=== PATIENT | male | born 1955 | race Caucasian/White ===

== ENCOUNTER 2017-09-03 06:54 | Inpatient (IN) | payer BC, OTHER ==
[2017-09-03] VITALS (33 sets, daily range): BP systolic 45–141; BP diastolic 21–105
[~2017-09-03] VITALS: Ht 182.9 cm; Wt 110.7 kg
--- OUTSIDE RECORDS SUMMARY | 2017-09-03 07:05 | XMS REPORT ---
Author Author Mundo Echols [facility] Address [address] [place], [place] [id number] Care Team Providers Care Digital Cartographer Name Role Phone Mundo Echols PCP Unavailable Allergies and Adverse Reactions Name Reaction Notes NO KNOWN DRUG ALLERGIES Plan of Treatment Not available. Medications Active Name Start Date Estimated Completion Date SIG Comments calcium carbonate Oral magnesium hydroxide Oral Nexium oral capsule,delayed release(DR/EC) 40 mg take 1 capsule (40 mg) by oral route once daily diclofenac sodium oral tablet,delayed release (DR/EC) 75 mg take 1 tablet (75 mg) by oral route 2 times per day Augmentin 875-125 mg oral tablet 06/01/2015 06/08/2015 take 1 tablet by oral route every 12 hours for 7 days Name Start Date Expiration Date SIG Comments Protonix Oral Tablet, Delayed Release (E.C.) 40 mg 11/18/2010 02/16/2011 take 1 tablet (40 mg) by oral route once daily Triamcinolone Acetonide Topical Cream 0.1 % 11/18/2010 11/28/2010 apply a thin film to the affected skin areas by topical route 2 times per day for 10 days Protonix oral tablet,delayed release (DR/EC) 40 mg 12/15/2013 04/14/2014 take 1 tablet (40 mg) by oral route 2 times per day for 30 days Discontinued Name Start Date Discontinued Date SIG Comments famotidine Oral tablet 10 mg 09/16/2013 Dexilant oral cap, multiphase delay release 60 mg 12/15/2013 take 1 capsule (60 mg) by oral route once daily Protonix oral tablet,delayed release (DR/EC) 40 mg 11/04/2013 12/15/2013 take 1 tablet (40 mg) by oral route once daily for 30 days Problem List Description Status Onset Acid reflux Active Vital Signs Date Time BP-Sys(mm[Hg] BP-Nedra(mm[Hg]) HR(bpm) RR(rpm) Temp WT HT HC BMI BSA BMI Percentile O2 Sat(%) 06/01/2015 6:43:00 PM 107 bpm 20 rpm 101.9 F 239 lbs 95 % 10/12/2014 2:05:00 PM 140 mmHg 86 mmHg 78 bpm 20 rpm 96.1 F 239 lbs 68 in 36.34 kg/m2 2.2806 m 98 % 10/05/2014 1:30:00 PM 152 mmHg 76 mmHg 80 bpm 20 rpm 96 F 239 lbs 68 in 36.3395 kg/m 2.28 m2 99 % 10/20/2013 10:52:00 AM 138 mmHg 74 mmHg 78 bpm 18 rpm 97.2 F 233 lbs 68 in 35.43 kg/m2 2.2518 m 97 % 09/16/2013 3:10:00 PM 132 mmHg 78 mmHg 82 bpm 16 rpm 96 F 233 lbs 68 in 35.4272 kg/m 2.2518 m 97 % 09/03/2013 11:21:00 AM 118 mmHg 68 mmHg 75 bpm 18 rpm 97.5 F 237 lbs 68 in 36.04 kg/m2 2.27 m2 100 % 11/18/2010 1:39:00 PM 125 mmHg 78 mmHg 113 bpm 18 rpm 97.3 F 234.5 lbs 68 in 35.6552 kg/m 2.259 m 96 % Social History Name Description Comments Caffeine Current - status unknown coffee drinker denies alcohol use Tobacco Never smoker History of Procedures Date Ordered Description Order Status 09/03/2013 12:00 AM COMPLETE CBC W/AUTO DIFF WBC Returned 09/03/2013 12:00 AM COMPREHEN METABOLIC PANEL Returned 09/03/2013 12:00 AM LIPID PANEL Returned 09/03/2013 12:00 AM ASSAY OF PSA TOTAL Returned 10/05/2014 12:00 AM EXC H-[id number] B9+JERAMIE 0.6-1 Ordered Results Summary Not available. History Of Immunizations Not available. 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 Gastroesophageal Reflux Nov 18 2010 1:53PM Pain in joint; hand Nov 18 2010 1:53PM Dermatitis Nov 18 2010 1:53PM Gastroesophageal Reflux Sep 03 2013 11:23AM Family history of Hypertension Sep 03 2013 11:23AM Screening For Prostate Cancer Sep 03 2013 11:23AM Dyspepsia Sep 16 2013 3:13PM Colon Cancer Screening Sep 16 2013 3:13PM Benign skin neoplasm Sep 16 2013 3:13PM Seborrheic keratosis Sep 16 2013 3:13PM Acute gastritis Oct 20 2013 10:56AM Follow-up examination after endoscopy Oct 20 2013 10:56AM Diverticulosis of the colon Oct 20 2013 10:56AM Postoperative Follow-up Oct 12 2014 2:06PM Nevus Oct 05 2014 1:31PM Upper respiratory infection Jun 01 2015 6:45PM Payers Insurance Name Company Name Plan Name Plan Number Policy Number Policy Group Number [id number] Thursday, 2010 History of Encounters Visit Date Visit Type Provider 06/01/2015 Office visit Slime ACOSTA 10/12/2014 Office visit Abeeb Gross MD 10/05/2014 Procedures Abebe Gross MD 10/20/2013 Office visit Abebe Gross MD 10/10/2013 [facility] Abebe Gross MD 09/16/2013 Office visit Abebe Gross MD 09/03/2013 Office visit Maria C Thomason APRN 11/18/2010 Office visit Raúl Dee MD
--- OUTSIDE RECORDS SUMMARY | 2017-09-03 07:08 | XMS REPORT | Continuity of Care Document ---
Author Author [facility] Organization [facility] Address Unknown Phone Unavailable Allergies Medications Problems Procedures Results Encounters ACCT No. Visit Date/Time Discharge Status Pt. Type Provider Facility Loc./Unit Complaint [id number] 06/01/2015 19:36:17 06/01/2015 23: 59:59 [facility] Outpatient Slime Ritchie [id number] 10/12/2014 14:59:39 10/12/2014 23: 59:59 [facility] Abebe Gross [id number] 10/05/2014 14:27:06 10/05/2014 23: 59:59 Abebe Cantu [id number] 10/24/2013 11:46:36 10/24/2013 23: 59:59 Abebe Cantu [id number] 10/20/2013 11:44:44 10/20/2013 23: 59:59 Abebe Cantu
--- NOTE | 2017-09-03 07:41 | Diagnostic Imaging Report ---
INDICATION: CODE BLUE, endotracheal tube placement FINDINGS: Portable view of the chest demonstrates endotracheal tube in good position. Heart size is normal. No effusion or pneumothorax seen. No fractures are identified. Bilateral pulmonary infiltrates are present, right greater than left. This could be due to edema. IMPRESSION: 1. Endotracheal tube is in good position 2. Bilateral pulmonary infiltrates are present greatest centrally but more so on the right than the left. This could be due to to pulmonary edema. Dictated by: Dictated on workstation # [id number]
[2017-09-03] MEDS ORDERED: NOREPINEPHRINE 4 MG/4 ML (LEVOPHED) AMP IV ONE (07:46)
[2017-09-03] MEDS ORDERED: D5W IV SOLUTION (EXCEL) 250 ML IV ONE ×3 (07:46→22:42)
--- NOTE | 2017-09-03 07:47 | ED CPR ---
HPI-CPR General Stated Complaint: CODE Source of Information: EMS, Family Exam Limitations: Physical Impairments History of Present Illness Time Seen by Provider: 06:55 Initial Comments Patient presents to ER by EMS in CPR. According to family says yesterday and when he went to bed he is having no problems, or concerns. He has a history of snoring and she woke up about 10 minutes prior to 6 this morning and he seemed to be doing fine. She woke up again at 6:00 and he was making a loud snoring sound and would not respond to her or wake up for her. She tried waking him for several minutes without any success before calling EMS. EMS reports they started CPR approximately 0620 and one shock was advised and then was asystole. CPR was continued upon arrival and the patient was unable to give any meaningful history secondary to being ventilated by [id number]. Family reports the patient does not see a primary care physician and has no known medical history. He does not take any medications. Family reports the patient was treated with doxycycline about 3-4 weeks ago for left lower leg cellulitis. Allergies and Home Medications Allergies Coded Allergies: No Known Drug Allergies (Unverified , 09/03/17) Review of Systems Constitutional: see HPI (review of systems unable to be obtained as patient is in cardiac arrest. Family reports mon negative review of systems.) Past [id number]-Wwiuvb-Ukzzzd Hx Patient Social History Alcohol Use: Denies Use Recreational Drug Use: No Smoking Status: Never a Smoker Physical Exam Vital Signs Vital Sign - Last 12Hours 09/03/17 09/03/17 06:54 07:55 Pulse 81 Resp 0 Pulse Ox 69 O2 Delivery Ambu Bag O2 Flow Rate 15.00 FiO2 100 Capillary Refill : General Appearance: Severe Distress, Other (cardiac arrest) HEENT: Other (pupils fixed 4 mm and no corneal reflex.) Neck: Normal Inspection, Supple Respiratory: Rales, Rhonci, Other Cardiovascular: No Edema, No JVD Gastrointestinal: Abnormal Bowel Sounds (hypoactive), Distended Extremity: Normal Inspection, Slow Capillary Refill Neurologic/Psychiatric: Other ([place] Coma Scale 3) Skin: Warm/Dry, Pallor Focused Exam Evaluation Lactate Level Laboratory Tests 09/03/17 07:42: Lactic Acid Level 12.06*H Lactic Acid Level Laboratory Tests Test 09/03/17 07:42 Lactic Acid Level 12.06 MMOL/L (0.50-2.00) *H Progress/Results/Core Measures Results/Orders Lab Results Laboratory Tests Test 09/03/17 07:42 09/03/17 08:28 09/03/17 08:29 Range/Units White Blood Count 7.1 4.3-11.0 10^3/uL Red Blood Count 4.19 L 4.35-5.85 10^6/uL Hemoglobin 12.6 L 13.3-17.7 G/DL Hematocrit 39 L 40-54 % Mean Corpuscular Volume 92 80-99 FL Mean Corpuscular Hemoglobin 30 25-34 PG Mean Corpuscular Hemoglobin Concent 33 32-36 G/DL Red Cell Distribution Width 13.8 10.0-14.5 % Platelet Count 118 L 130-400 10^3/uL Mean Platelet Volume 11.1 H 7.4-10.4 FL Neutrophils (%) (Auto) 24 L 42-75 % Lymphocytes (%) (Auto) 67 H 12-44 % Monocytes (%) (Auto) 7 0-12 % Eosinophils (%) (Auto) 1 0-10 % Basophils (%) (Auto) 1 0-10 % Neutrophils # (Auto) 1.7 L 1.8-7.8 X 10^3 Lymphocytes # (Auto) 4.7 H 1.0-4.0 X 10^3 Monocytes # (Auto) 0.5 0.0-1.0 X 10^3 Eosinophils # (Auto) 0.1 0.0-0.3 10^3/uL Basophils # (Auto) 0.1 0.0-0.1 10^3/uL Neutrophils % (Manual) 9 % Lymphocytes % (Manual) 43 % Monocytes % (Manual) 7 % Eosinophils % (Manual) 1 % Metamyelocytes % 2 % Band Neutrophils 7 % Nucleated Red Blood Cells 1 Reactive Lymphocytes 31 % Smudge Cells 8 PER 100 WBC Blood Morphology Comment NORMAL Sodium Level 143 135-145 MMOL/L Potassium Level 3.6 3.6-5.0 MMOL/L Chloride Level 109 H 98-107 MMOL/L Carbon Dioxide Level 12 L 21-32 MMOL/L Anion Gap 22 H 5-14 MMOL/L Blood Urea Nitrogen 15 7-18 MG/DL Creatinine 1.60 H 0.60-1.30 MG/DL Estimat Glomerular Filtration Rate 44 BUN/Creatinine Ratio 9 Glucose Level 372 H 70-105 MG/DL Lactic Acid Level 12.06 *H 0.50-2.00 MMOL/L Calcium Level 7.7 L 8.5-10.1 MG/DL Total Bilirubin 0.3 0.1-1.0 MG/DL Aspartate Amino Transf (AST/SGOT) 375 H 5-34 U/L Alanine Aminotransferase (ALT/SGPT) 457 H 0-55 U/L Alkaline Phosphatase 86 40-136 U/L Total Creatine Kinase 1445 H 30-200 U/L Creatine Kinase MB 165.5 *H <6.6 NG/ML Troponin I 5.19 *H <0.30 NG/ML Total Protein 4.8 L 6.4-8.2 GM/DL Albumin 2.7 L 3.2-4.5 GM/DL Prothrombin Time 20.4 H 12.2-14.7 SEC INR Comment 1.7 H 0.8-1.4 Activated Partial Thromboplast Time 77 H 24-35 SEC Blood Gas Puncture Site l rad Blood Gas Patient Temperature 96.7 Arterial Blood pH 6.93 *L 7.37-7.43 Arterial Blood Partial Pressure CO2 64 H 35-45 MMHG Arterial Blood Partial Pressure O2 51 L 79-93 MMHG Arterial Blood HCO3 13 *L 23-27 MMOL/L Arterial Blood Total CO2 14.9 L 21.0-31.0 MMOL/L Arterial Blood Oxygen Saturation 59 L 94-100 % Arterial Blood Base Excess -17.7 L -2.5-2.5 MMOL/L Michael Test YES-POS Blood Gas Ventilator Setting YES Blood Gas Inspired Oxygen 100 fio2 My Orders Orders - ANGEL GUTIERREZ Chest 1 View, Ap/Pa Only (09/03/17 ) Sputum Culture (09/03/17 07:14) Chest 1 View, Ap/Pa Only (09/03/17 ) D5w Iv Solution ([place]) (Dextrose 5% Marly (09/03/17 07:46) Norepinephrine (Levophed) (09/03/17 07:46) Cbc With Automated Diff (09/03/17 08:03) Comprehensive Metabolic Panel (09/03/17 08:03) Creatine Kinase (09/03/17 08:03) Creatine Kinase Mb (09/03/17 08:03) Troponin I (09/03/17 08:03) Protime With Inr (09/03/17 08:03) Partial Thromboplastin Time (09/03/17 08:03) Lactic Acid Analyzer (09/03/17 08:03) Ns Iv 1000 Ml (Sodium Chloride 0.9%) (09/03/17 08:14) Manual Differential (09/03/17 07:42) Ns (Ivpb) (Sodium Chloride 0.9%) (09/03/17 08:18) Arterial Blood Gas (09/03/17 08:30) Ns Iv 1000 Ml (Sodium Chloride 0.9%) (09/03/17 09:07) Ekg Tracing (09/03/17 09:40) Ekg Tracing (09/03/17 09:40) Norepinephrine (Levophed) (09/03/17 09:45) Ns (Ivpb) (Sodium C... W/Epinephrine 1 (09/03/17 09:45) Ns (Ivpb) (Sodium C... W/Epinephrine 1 (09/03/17 09:45) Ns Iv 1000 Ml (Sodium Chloride 0.9%) (09/03/17 10:15) Ns Iv 1000 Ml (Sodium Chloride 0.9%) (09/03/17 10:15) Ns (Ivpb) (Sodium C... W/Epinephrine 1 (09/03/17 10:45) Medications Given in ED Current Medications Medications Dose Ordered Sig/Darline Route Start Time Stop Time Status Last Admin Dose Admin Sodium Chloride 1,000 ml @ ud STK-MED ONCE .ROUTE 09/03/17 08:14 09/03/17 08:24 DC 09/03/17 07:35 999 MLS/HR Sodium Chloride 1,000 ml @ ud STK-MED ONCE .ROUTE 09/03/17 09:07 09/03/17 09:17 DC 09/03/17 07:23 999 MLS/HR Vital Signs/I&O Vital Sign - Last 12Hours 09/03/17 09/03/17 09/03/17 06:54 07:55 10:32 Pulse 81 52 Resp 0 16 18 Pulse Ox 69 80 O2 Delivery Ambu Bag O2 Flow Rate 15.00 FiO2 100 100 Progress Note #1: Time: 13:20 Progress Note Cardiac arrest. Suspicion for pulmonary embolism given history of cellulitis in the extremity. Patient is not stable for CT of head or chest. He is post- multiple rounds of CPR so we will not initiate blood thinners or TPA at this time. Case was discussed with Dr. Snell, hourly sign language interpreter at [place], [place] and he recommends imaging before even thinking about blood thinners. Discussed with Dr. العلي in the ER at [place], [place] and he is willing to accept the patient if we can get him stable left transport. Progress Note #2: Time: 07:[address] Snell; [facility] ICU: 0745: Asked us to stabilize get a CT head if possible. Asked for cardiology to evaluate and see the patient is going to catheter lab. 0900: Indicated with a good pulse and pressure and the cardiology evaluated the patient and feels would be more expedient to send him by air to the ER to be further. 0905: Dr العلي Discussed case. ED 1056: Updated [facility] will not be transporting the patient at this time as goals of care changed. Consults Consults : Consulting Physician: Gilberto LUNA MD Consults Notes Using echo at bedside patient has. ekg is wide complex qrs without p waves. The Financial Aid Counselor was presently occupied so he feels that if we can get a good pulse and pressure that we should send the patient since only take 8 minutes for them to get to [facility]. However he recommends ago to the ER. He says the right heart atrium is enlarged but has good ES and good squeeze. There is some bowing of the septum. May be consistent with pulmonary emboli. EKG does not show strong evidence of acute AR. Critical Care Note Critical Care Start Time: 06:55 Stop Time: 09:30 Total Time (minutes) 2h 35m Progress Patient presented in cardiac arrest with PEA seen on the monitor. Return of spontaneous circulation was obtained multiple times. For exact counts of epinephrine in time she should refer to the nursing notes. Patient did require shocked for V. fib one time. A ET tube was placed shortly after arrival 7.5 with 23 at the lips and good placement as the patient was not oxygenating very well on the monitor. From the time he arrived his sats were in the 80s to 60s and he never got any better than that partially this is due to the epinephrine. Patient had rhonchus in lung sounds but was not pulling anything up suction and did not have any edema to suggest heart failure. Bedside ultrasound did not demonstrate any cardiac tamponade or significant effusion. Patient was started on epinephrine drip peripherally and eventually a fever fed drip was added. We had the patient stable long enough we got a central line placed in the right internal jugular which was confirmed on x-ray. OG tube was also placed. ET tube and OG tube were in good position on the x-ray for the central line. The patient presented to us with one lower extremity intraosseous IV access and 2 more accesses were applied to bilateral hands. We switched the drips over to the central line and eventually ended up maxing at the epinephrine at about 40 g and Levophed 15. At this point the patient was having a slow wide QRS complex non-sinus bradycardia and go into cardiac arrest be given a bolus of epinephrine and then began to beat spontaneously again and now blood pressure as soon as the epinephrine wore off in several minutes would go back into arrest. [facility], helicopter medical transport was on site and ready to transport the patient and every time we tried to get the patient out the door the patient would arrest again. Dr. Luna was present and had help perform bedside echocardiography and determined that the heart did not seem to be the likely source of the patient's cardiac arrest based on his imaging. He did remarks that the right atria was dilated. The cardiac catheter room was occupied at the time so he recommended if we are going to do anything for the patient the best option would be to transfer the patient. Since we could not get the patient stable left transport we discussed with the family that the patient's total CPR was in excess of an hour and we discussed the ABG findings showed extreme acidosis and that the patient has had no neurologic recovery at this time nor is he responding to noxious stimuli and no sedation was needed for intubation or at any time. The outcome given this long amount of hypoxic brain injury prior to even starting CPR as well as the prolonged period of time he was given CPR lead us to give him a very poor prognosis for any meaningful neurologic recovery. Both supervisor pullet farm and this ED doctor discussed outcomes and the family agreed it would be best to consider allowing a natural . The family would like an out-of-town son to be able to make it safe by before allowing the patient to passively discussed with Dr. Alcaraz and he is willing to take the patient on in the ICU and care for the patient here. We will not be pursuing postarrest therapeutic hypothermia as the goals of care at this time are just to get the family to spend some time with the patient prior to drawing care. Again the patient has had no neurologic recovery and has had a very poor course with a unwitnessed exact time of arrest. We discussed all options with the supervisor pullet farm and family present and feel that this time any further intervention would be futile. Departure Impression Impression: Primary Impression: Cardiac arrest Disposition: ADMITTED INPATIENT Condition: Critical Admissions Decision to Admit Reason: Admit from ER (General) Decision to Admit/Date: Sep 03, 2017 Time/Decision to Admit Time: 11:30 ANGEL GUTIERREZ Sep 03, 2017 07:47
[2017-09-03] MEDS ORDERED: CATHETER FLUSH 10 ML SYR IV ONE (08:00)
[2017-09-03] MEDS ORDERED: SODIUM BICARB 8.4% 50 MEQ/50 ML (ABBOTT) SYR INJ ONE (08:00)
[2017-09-03] MEDS ORDERED: EPINEPHrine INJECTION 1 MG/ML AMP IM/IV/SC ONE (08:00)
[2017-09-03] MEDS: NOREPINEPHRINE 4 MG in D5W IV SOLUTION (EXCEL) 250 ML IV SCH ×6 (08:01→22:44)
[2017-09-03 08:09] LABS: BASOPHILS # (AUTO) 0.1 10^3/uL (0.0-0.1); BASOPHILS % (AUTO) 1 % (0-10); EOSINOPHILS # (AUTO) 0.1 10^3/uL (0.0-0.3); EOSINOPHILS % (AUTO) 1 % (0-10); LYMPHOCYTES # (AUTO) 4.7 X 10^3 (1.0-4.0); LYMPHOCYTES % (AUTO) 67 % (12-44); MEAN CORPUSCULAR HEMOGLOBIN 30 PG (25-34); MEAN CORPUSCULAR HGB CONC 33 G/DL (32-36); MEAN CORPUSCULAR VOLUME 92 FL (80-99); MEAN PLATELET VOLUME 11.1 FL (7.4-10.4); MONOCYTES # (AUTO) 0.5 X 10^3 (0.0-1.0); MONOCYTES % (AUTO) 7 % (0-12); NEUTROPHILS # (AUTO) 1.7 X 10^3 (1.8-7.8); NEUTROPHILS % (AUTO) 24 % (42-75); PLATELET COUNT 118 10^3/uL (130-400); RED BLOOD COUNT 4.19 10^6/uL (4.35-5.85); RED CELL DISTRIBUTION WIDTH 13.8 % (10.0-14.5); WHITE BLOOD COUNT 7.1 10^3/uL (4.3-11.0)
[2017-09-03] MEDS ORDERED: NS IV 1000 ML 1,000 ML ONE ×2 (08:14→09:07)
[2017-09-03] MEDS ORDERED: NS (IVPB) 250 ML ONE ×2 (08:18→08:56)
[2017-09-03 08:25] LABS: ALBUMIN 2.7 GM/DL (3.2-4.5); BILIRUBIN,TOTAL 0.3 MG/DL (0.1-1.0); CALCIUM 7.7 MG/DL (8.5-10.1); CREATININE SERUM 1.6 MG/DL (0.60-1.30); POTASSIUM 3.6 MMOL/L (3.6-5.0); TOTAL PROTEIN 4.8 GM/DL (6.4-8.2)
[2017-09-03 08:35] LABS: ABG BASE EXCESS -17.7 MMOL/L (-2.5-2.5); ABG OXYGEN SATURATION 59 % (94-100); ABG PCO2 64 MMHG (35-45); ABG PO2 51 MMHG (79-93); ABG TCO2 14.9 MMOL/L (21.0-31.0)
--- NOTE | 2017-09-03 08:36 | Diagnostic Imaging Report ---
Portable supine radiograph of the chest. INDICATION: Central line and orogastric tube placement. FINDINGS: ET tube is still in good place. Orogastric tube appears to pass through the proximal stomach and ends below the level of the image in the left side of the abdomen. The right IJ central line terminates in the proximal right atrium. No pneumothorax. Extensive bilateral infiltrates slightly worse than previous study performed one hour prior to this exam seen. The heart size is at the upper limits of normal. No effusion. The mediastinum and cj appear unremarkable. IMPRESSION: Slight worsening in bilateral extensive infiltrates more prominent on the right side. The differential includes pneumonia or asymmetric edema. Dictated by: Dictated on workstation # [id number]
[2017-09-03 08:38] LABS: ABG PH 6.93 (7.37-7.43)
[2017-09-03 08:39] LABS: ABG HCO3 13 MMOL/L (23-27); ALLENS TEST YES-POS
[2017-09-03 08:40] LABS: PATIENT TEMP 96.7
[2017-09-03 08:44] LABS: TROPONIN I 5.19 NG/ML (<0.30)
[2017-09-03 08:49] LABS: INR 1.7 (0.8-1.4); PROTHROMBIN TIME PATIENT 20.4 SEC (12.2-14.7)
[2017-09-03] MEDS: EPINEPHrine 1 MG INJECTION 2 MG in NS (IVPB) 248 ML IV SCH ×4 (09:05→11:39)
--- NOTE | 2017-09-03 09:09 | Consultation-Cardiology ---
HPI-Cardiology Cardiology Consultation: Date of Consultation 09/03/17 Date of Admission Attending Physician Admitting Physician Consulting Physician Gilberto LUNA MD HPI: Time Seen by Provider: 08:30 Chief Complaint: Cardiac Arrest This is a 61-year-old gentleman who has history of obstructive sleep apnea. No known cardiac history. He presented to the ER at around 7 o'clock this morning with agonal breathing and cardiac arrest during EMS transport. BLS and ACLS protocol initiated by ER department. Review of Systems-Cardiology Review of Systems Constitutional: As described under HPI Eyes: As described under HPI Ears/Nose/Throat: As described under HPI Respiratory: As described under HPI Cardiovascular: As described under HPI Gastrointestinal: As described under HPI Genitourinary: As described under HPI Musculoskeletal: As describe under HPI Skin: As described under HPI Psychiatric/Neurological: As described under HPI Hematologic: As described under HPI ZDH-Xsauxg-Oszwoe Hx Past Medical History PMH As described under Assessment. Allergies and Home Medications Allergies Coded Allergies: No Known Drug Allergies (Unverified , 09/03/17) Physical Exam-Cardiology Physical Exam Vital Signs/I&O Vital Sign - Last 12Hours 09/03/17 09/03/17 06:54 07:55 Pulse 81 Resp 0 16 Pulse Ox 69 O2 Delivery Ambu Bag O2 Flow Rate 15.00 FiO2 100 Capillary Refill : Constitutional: other (intubated ventilated) Respiratory: other (intubated and ventilated, bilateral air entry) Cardiovascular: other (faint pulse) Gastrointestinal: No tender, No soft, No round, No distended, No pulsatile mass , No organomegaly, No guarding, No rebound, No tenderness, No hernia, No mass, No audible bowel sounds, No abnormal bowel sounds, No abdominal bruits, No spleenomegaly, No other Rectal: deferred Extremities: No normal range of motion, No non-tender, No normal inspection, No pedal edema, No calf tenderness, No normal capillary refill, No pelvis stable , No calf tenderness, No inflammation, No pedal edema, No slow capillary refill , No swelling, No other, No abrasion, No clubbing, No cyanosis, No ecchymosis, No laceration, No no lower extremity edema bilateral, No significant edema, No tenderness, No wound Neurologic/Psychiatric: other (unresponsive) Skin: cool Data Review Labs Laboratory Tests 09/03/17 07:42: White Blood Count 7.1, Red Blood Count 4.19L, Hemoglobin 12.6L, Hematocrit 39L, Mean Corpuscular Volume 92, Mean Corpuscular Hemoglobin 30, Mean Corpuscular Hemoglobin Concent 33, Red Cell Distribution Width 13.8, Platelet Count 118L, Mean Platelet Volume 11.1H, Neutrophils (%) (Auto) 24L, Lymphocytes (%) (Auto) 67H, Monocytes (%) (Auto) 7, Eosinophils (%) (Auto) 1, Basophils (%) (Auto) 1, Neutrophils # (Auto) 1.7L, Lymphocytes # (Auto) 4.7H, Monocytes # (Auto) 0.5, Eosinophils # (Auto) 0.1, Basophils # (Auto) 0.1, Neutrophils % (Manual) 9, Lymphocytes % (Manual) 43, Monocytes % (Manual) 7, Eosinophils % (Manual) 1, Metamyelocytes % 2, Band Neutrophils 7, Nucleated Red Blood Cells 1, Reactive Lymphocytes 31, Smudge Cells 8 PER 100 WBC, Blood Morphology Comment NORMAL, Sodium Level 143, Potassium Level 3.6, Chloride Level 109H, Carbon Dioxide Level 12L, Anion Gap 22H, Blood Urea Nitrogen 15, Creatinine 1.60H, Estimat Glomerular Filtration Rate 44, BUN/Creatinine Ratio 9, Glucose Level 372H, Lactic Acid Level 12.06*H, Calcium Level 7.7L, Total Bilirubin 0.3, Aspartate Amino Transf (AST/SGOT) 375H, Alanine Aminotransferase (ALT/SGPT) 457H, Alkaline Phosphatase 86, Total Creatine Kinase 1445H, Creatine Kinase MB 165.5*H , Troponin I 5.19*H, Total Protein 4.8L, Albumin 2.7L 09/03/17 08:28: Prothrombin Time 20.4H, INR Comment 1.7H, Activated Partial Thromboplast Time 77H 09/03/17 08:29: Blood Gas Puncture Site l rad, Blood Gas Patient Temperature 96.7, Arterial Blood pH 6.93*L, Arterial Blood Partial Pressure CO2 64H, Arterial Blood Partial Pressure O2 51L, Arterial Blood HCO3 13*L, Arterial Blood Total CO2 14.9L, Arterial Blood Oxygen Saturation 59L, Arterial Blood Base Excess -17.7L, Michael Test YES-POS, Blood Gas Ventilator Setting YES, Blood Gas Inspired Oxygen 100 fio2 ECG Impression ECG Comment Slow idioventricular rhythm A/P-Cardiology Assessment/Admission Diagnosis Cardiac arrest; active ACLS protocol Plan This is a 61-year-old gentleman who presented to the ER with agonal breathing and cardiac arrest. Cardiac arrest during transport as well with CPR performed by EMS. He was intubated and ventilated. Numerous cardiac arrest in the ER requiring ACLS protocol and epinephrine boluses. PEA arrest, with the underlying rhythm being wide complex with heart rate of 30-60 bpm. This is likely idioventricular rhythm with no significant peripheral perfusion. Systolic blood pressure below 70 mmHg on to maximum doses of pressors. Requiring frequent epinephrine boluses as well. Even with intubation and ventilation saturation between 60 percent and 80 percent. ABG showed severe acidosis with hypercapnia and hypoxemia. CPR and ACLS for at least an hour with no significant revival of perfusion and ventilation. A quick bedside echocardiogram was done which showed no pericardial effusion, enlarged IVC, RV enlargement, LV systolic function is 40-45% on high-dose epinephrine. No cardiac invasive strategy recommended at this point in time. During all of this air transport was organized to transport to [facility] however patient would again go into cardiac arrest and therefore transport could not be initiated. Discussions with family continued. Prognosis is grave and further resuscitation is futile. I spent over an hour in the ER with the emergency department team and also discussed with the family as well. Thank you for your consultation. Please call me if you have any questions. Jamie Luna MD, FACP, FACC, FSCAI, FHRS, CCDS Interventional Cardiology Cardiac Electrophysiology Vascular Medicine and Endovascular Interventions Gilberto LUNA MD Sep 03, 2017 09:09
[2017-09-03 09:16] LABS: BAND NEUTROPHILS 7 %; EOSINOPHILS % (MANUAL) 1 %; LYMPHOCYTES % (MANUAL) 43 %; METAMYELOCYTES % 2 %; NEUTROPHILS % (MANUAL) 9 %; REACTIVE LYMPHOCYTES 31 %
[2017-09-03] MEDS ORDERED: EPINEPHrine 1 MG INJECTION 2 MG in NS (IVPB) 248 ML IV SCH ×2 (09:45→10:45)
[2017-09-03] MEDS ORDERED: NS IV 1000 ML 1,000 ML IV SCH ×3 (10:15→12:45)
--- OUTSIDE RECORDS SUMMARY | 2017-09-03 10:55 | XMS REPORT | Continuity of Care Document ---
Author Author [facility] Organization [facility] Address Unknown Phone Unavailable Allergies Medications Problems Procedures Results Encounters ACCT No. Visit Date/Time Discharge Status Pt. Type Provider Facility Loc./Unit Complaint [id number] 06/01/2015 19:36:17 06/01/2015 23: 59:59 [facility] Outpatient Slime Ritchie [id number] 10/12/2014 14:59:39 10/12/2014 23: 59:59 [facility] Abebe Gross [id number] 10/05/2014 14:27:06 10/05/2014 23: 59:59 Abebe Cantu [id number] 10/24/2013 11:46:36 10/24/2013 23: 59:59 Abebe Cantu [id number] 10/20/2013 11:44:44 10/20/2013 23: 59:59 Abebe Cantu
[2017-09-03] MEDS: NS IV SCH ×4 (12:26→22:44)
[2017-09-03] MEDS: EPINEPHRINE IV SCH ×4 (12:26→22:44)
[2017-09-03] MEDS ORDERED: DOPamine DRIP 250 ML IV SCH (13:15)
[2017-09-03 14:12] LABS: ABG BASE EXCESS -11.6 MMOL/L (-2.5-2.5); ABG OXYGEN SATURATION 56 % (94-100); ABG PCO2 64 MMHG (35-45); ABG PO2 40 MMHG (79-93); ABG TCO2 19.4 MMOL/L (21.0-31.0)
[2017-09-03 14:13] LABS: ABG PH 7.05 (7.37-7.43)
[2017-09-03 14:14] LABS: BASOPHILS # (AUTO) 0.1 10^3/uL (0.0-0.1); BASOPHILS % (AUTO) 0 % (0-10); EOSINOPHILS % (AUTO) 0 % (0-10); LYMPHOCYTES # (AUTO) 2.3 X 10^3 (1.0-4.0); LYMPHOCYTES % (AUTO) 9 % (12-44); MEAN CORPUSCULAR HEMOGLOBIN 30 PG (25-34); MEAN CORPUSCULAR HGB CONC 33 G/DL (32-36); MEAN CORPUSCULAR VOLUME 92 FL (80-99); MEAN PLATELET VOLUME 10.2 FL (7.4-10.4); MONOCYTES # (AUTO) 1.1 X 10^3 (0.0-1.0); MONOCYTES % (AUTO) 5 % (0-12); NEUTROPHILS # (AUTO) 21.1 X 10^3 (1.8-7.8); NEUTROPHILS % (AUTO) 86 % (42-75); PLATELET COUNT 294 10^3/uL (130-400); RED BLOOD COUNT 5.04 10^6/uL (4.35-5.85); RED CELL DISTRIBUTION WIDTH 14.1 % (10.0-14.5); WHITE BLOOD COUNT 24.6 10^3/uL (4.3-11.0)
[2017-09-03 14:14] LABS: ABG HCO3 17 MMOL/L (23-27); ALLENS TEST YES-POS; PATIENT TEMP 96.9
[2017-09-03 14:34] LABS: BAND NEUTROPHILS 15 %; LYMPHOCYTES % (MANUAL) 9 %; NEUTROPHILS % (MANUAL) 71 %
[2017-09-03] MEDS: VASOPRESSIN INJECTION 20 UNIT in NS (IVPB) 50 ML IV SCH ×2 (14:38→22:02)
[2017-09-03 14:40] LABS: ALBUMIN 3.5 GM/DL (3.2-4.5); BILIRUBIN,TOTAL 0.6 MG/DL (0.1-1.0); CALCIUM 7.7 MG/DL (8.5-10.1); CREATININE SERUM 2.12 MG/DL (0.60-1.30); POTASSIUM 3.6 MMOL/L (3.6-5.0); TOTAL PROTEIN 6.5 GM/DL (6.4-8.2)
[2017-09-03] MEDS ORDERED: INFLUENZA TRIvalent 2017-2018 0.5 ML/45 MCG SYR IM ONE (15:30)
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
[2017-09-03 16:08] LABS: ABG BASE EXCESS -12.4 MMOL/L (-2.5-2.5); ABG OXYGEN SATURATION 93 % (94-100); ABG PCO2 47 MMHG (35-45); ABG PO2 74 MMHG (79-93); ABG TCO2 16.9 MMOL/L (21.0-31.0)
[2017-09-03 16:09] LABS: ALLENS TEST YES-POS
[2017-09-03 16:10] LABS: PATIENT TEMP 96.2
[2017-09-03 16:11] LABS: ABG HCO3 15 MMOL/L (23-27); ABG PH 7.13 (7.37-7.43)
[2017-09-03] MEDS ORDERED: PHENYLEPHRINE INJ 10 MG/ML (NEO-SYNEPHRINE 1%) ONE ×3 (16:23→22:42)
[2017-09-03] MEDS ORDERED: PHENYLEPHRINE DOUBLE STRENGTH 20MG/ 250 ML IV SCH ×2 (16:45)
[2017-09-03] MEDS: PHENYLEPHRINE INJECTION 10 MG in D5W IV SOLUTION (EXCEL) 250 ML IV SCH ×4 (16:46→22:56)
[2017-09-03 19:02] LABS: ABG BASE EXCESS -12.2 MMOL/L (-2.5-2.5); ABG OXYGEN SATURATION 95 % (94-100); ABG PCO2 42 MMHG (35-45); ABG PO2 80 MMHG (79-93); ABG TCO2 16.2 MMOL/L (21.0-31.0)
[2017-09-03 19:04] LABS: ABG HCO3 15 MMOL/L (23-27); ABG PH 7.17 (7.37-7.43); ALLENS TEST YES-POS
[2017-09-03 19:05] LABS: PATIENT TEMP 97.1
[2017-09-03 21:15] LABS: BILIRUBIN,TOTAL 0.5 MG/DL (0.1-1.0); CALCIUM 7.2 MG/DL (8.5-10.1); CREATININE SERUM 3.44 MG/DL (0.60-1.30); POTASSIUM 3.8 MMOL/L (3.6-5.0); TOTAL PROTEIN 5.3 GM/DL (6.4-8.2)
--- NOTE | 2017-09-03 21:25 | Diagnostic Imaging Report ---
PROCEDURE: CT head without contrast. TECHNIQUE: Multiple contiguous axial images were obtained through the brain without the use of intravenous contrast. INDICATION: Unresponsive post code. CORRELATION STUDY: None FINDINGS: There is rather diffuse heterogeneous attenuation throughout the brain parenchyma. There is diffuse loss of sulci pattern and scattered areas of loss of the alarcon-white differentiation. The findings are most consistent with diffuse cerebral edema. Basilar cisterns are effaced and obliterated. Lateral ventricles are nearly slitlike. Increased density along the tentorium and falx is likely owing to the diffuse low-attenuation of the brain parenchyma. Intracranial hemorrhage is considered less likely. There is opacification of the posterior nasal cavity. Scattered areas of mucosal thickening along with a cyst or polyps in the maxillary sinuses. IMPRESSION: Findings most consistent with diffuse cerebral edema with presence of herniation. CRITICAL FINDINGS The critical findings have been telephoned to the intensive care unit at 9:15 PM Dictated by: Dictated on workstation # [id number]
[2017-09-03 21:52] LABS: ABG BASE EXCESS -12.5 MMOL/L (-2.5-2.5); ABG OXYGEN SATURATION 96 % (94-100); ABG PCO2 41 MMHG (35-45); ABG PO2 94 MMHG (79-93); ABG TCO2 15.1 MMOL/L (21.0-31.0); ALLENS TEST YES-POS
[2017-09-03 21:53] LABS: PATIENT TEMP 101.8
[2017-09-03 21:54] LABS: ABG HCO3 14 MMOL/L (23-27); ABG PH 7.17 (7.37-7.43)
== END 2017-09-03 23:25 | disposition expired | DRG 297 ==
LOC: ER 06:59 → ICU 10:50
PROVIDERS: ADMIT Internal Medicine; ATTEND Internal Medicine
PROC: 5A1935Z Respiratory Ventilation, Less than 24 Consecutive Hours (ICD-10-PCS; principal; 2017-09-03)
DX: I46.9 Cardiac arrest, cause unspecified (principal); G93.1 Anoxic brain damage, not elsewhere classified; K21.9 Gastro-esophageal reflux disease without esophagitis; L40.9 Psoriasis, unspecified; G47.33 Obstructive sleep apnea (adult) (pediatric); Z66 Do not resuscitate
CPT/HCPCS: 31500; 36415; 51702; 70450; 71010; 80053; 82550; 82553; 82805; 83605; 84484; 85007; 85027; 85610; 85730; 87070; 87205; 93005; 93041; 93308; 94002